=== PATIENT | female | born 1965 | race Caucasian/White ===

== ENCOUNTER 2022-03-14 13:49 | Outpatient (REF) | payer OTHER, SELFPAY ==
--- NOTE | ~2022-03-14 | MR_ITS ---
EXAMINATION: MR KNEE WITHOUT AND WITH CONTRAST, RIGHT CLINICAL INFORMATION: Pain, palpable mass just superior to patella. COMPARISON: None. TECHNIQUE: MRI of the knee was performed before and after the intravenous administration of 8 mL Gadavist on a high-field scanner. FINDINGS: MENISCI: Medial meniscus: Intact. Lateral meniscus: Intact. LIGAMENTS: Cruciate: Intact. Collateral: Intact. EXTENSOR MECHANISM: Intact. ARTICULAR CARTILAGE/BONE: There is a solid soft tissue mass in the anterior joint space, deep and superior to the patella and the distal quadriceps tendon, anterior to the distal femur. This measures 2.2 x 4.1 x 4.5 cm (AP x ML x CC). The mass abuts the deep surface of the quadriceps tendon and the suprapatellar fat; the posterior aspect of the mass abuts the distal femur. This mass is heterogeneous on T1 and T2-weighted sequences. There is areas of bright T2/intermediate T1 signal within the mass, with along with intermingled areas of prominent areas of low T1/T2 signal. There is diffuse enhancement within the mass. Differential consideration include pigmented villonodular synovitis of the knee (PVNS); synovial sarcoma. Questionable small foci of intermediate signal and enhancement deep to the proximal medial gastrocnemius tendon, which may represent additional mass lesions. No significant cartilage loss is seen in the 3 compartments. No suspicious marrow signal changes. JOINT FLUID AND BURSAE: Small effusion. Small Morris's cyst. MR/MR knee RT wo/w con IMPRESSION: 1. Solid soft tissue mass in the anterior joint space, located deep/superior to the patella, measuring 2.2 x 4.1 x 4.5 cm. This is enhancing solid mass, with MRI characteristics as detailed above. Question additional small mass lesions adjacent to the proximal medial gastrocnemius tendon. Differential considerations include pigmented villonodular synovitis of the knee (PVNS); neoplastic etiologies such as synovial sarcoma. Recommend orthopedic oncology consultation for clinical evaluation, workup and management. Biopsy can be considered as clinically warranted. 2. Small joint effusion. Small Morris's cyst. 3. Additional findings and details as above. The report will be called to the ordering clinician by a [facility] [employer].
== END 2022-03-14 13:50 | disposition home or self-care (01) ==
LOC: HO.MRI 13:49
PROVIDERS: Visit Provider Orthopaedic Surgery
DX: M25.861 Other specified joint disorders, right knee (principal)
CPT/HCPCS: 73723; A9585